=== PATIENT | male | born 1985 | race Caucasian/White ===

== ENCOUNTER 2024-01-14 01:11 | Emergency (ER) | payer OTHER ==
[~2024-01-14] VITALS: Ht 170.2 cm; Wt 85.0 kg
[2024-01-14 02:36] LABS: AMPHETAMINES, URINE POSITIVE (NEGATIVE); BARBITURATES, URINE NEGATIVE (NEGATIVE); BENZODIAZEPINE, URINE NEGATIVE (NEGATIVE); BUPRENORPHINE, URINE NEGATIVE (NEGATIVE); CANNABINOID, URINE POSITIVE (NEGATIVE); COCAINE, URINE NEGATIVE (NEGATIVE); ECSTASY, URINE POSITIVE (NEGATIVE); FENTANYL, URINE NEGATIVE (NEGATIVE); METHADONE, URINE NEGATIVE (NEGATIVE); OPIATES, URINE NEGATIVE (NEGATIVE); OXYCODONE, URINE NEGATIVE (NEGATIVE); PHENCYCLIDINE, URINE NEGATIVE (NEGATIVE)
[2024-01-14 03:45] VITALS: BP 148/85
== END 2024-01-14 03:45 | disposition home or self-care (01) ==
LOC: ED 01:11
PROVIDERS: Family Medicine
DX: F15.10 Other stimulant abuse, uncomplicated (principal); F12.10 Cannabis abuse, uncomplicated; Z88.0 Allergy status to penicillin
CPT/HCPCS: 80307; 99283

== ENCOUNTER 2024-02-04 23:47 | Emergency (ER) | payer OTHER ==
[~2024-02-04] VITALS: Ht 170.2 cm; Wt 81.9 kg
--- OUTSIDE RECORDS SUMMARY | 2024-02-04 23:47 | XMS ---
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 Jeramie has no Care Guidelines for this patient. [facility] (12 MO.) [facility] NOTE: Visits indicate total known visits. ED/C VISIT TRACKING (12 MO.) [facility] COMPLAINT: - DRUG EXPOSURE 01/14/2024 01:13 [facility] [place] TYPE: Emergency COMPLAINT: - CHECMICAL EXPOSURE DIAGNOSES: - Allergy status to penicillin - Cannabis abuse, uncomplicated - Other psychoactive substance abuse, uncomplicated - Other stimulant abuse, uncomplicated - Other stimulant abuse, uncomplicated INPATIENT VISIT TRACKING (12 MO.) No inpatient visits to display in this time frame [email or web address]
[2024-02-05] MEDS ORDERED: NALOXONE 4 MG NASAL SPRAY #2 HOME.PACK NAS ONE (01:15)
[2024-02-05 01:25] VITALS: BP 133/96
== END 2024-02-05 01:27 | disposition home or self-care (01) ==
LOC: ED 23:47
DX: Z77.29 Contact with and (suspected) exposure to other hazardous substances (principal)
CPT/HCPCS: 99283; J3490

== ENCOUNTER 2024-05-07 22:37 | Emergency (ER) | payer OTHER ==
[~2024-05-07] VITALS: Ht 170.2 cm; Wt 95.6 kg
[2024-05-07 23:00] LABS: HEMATOCRIT 42.4 % (35.0-50.0); HEMOGLOBIN 14.1 g/dL (12.0-18.0); MCH 30.4 (27-36); MCHC 33.4 g/dl (30-36); PLATELET COUNT 293 K/uL (140-440); RBC 4.66 M/ul (4.3-5.7); RDW 14.7 (10.5-15.0)
[2024-05-07] MEDS ORDERED: DIPHTH,PERTUSS(ACELL),TET VAC 0.5 ML SYRINGE IM ONE (23:00)
[2024-05-07 23:11] LABS: ALBUMIN 3.9 g/dL (3.4-5.0); ALBUMIN/GLOBULIN RATIO 1.03 (1.1-2.4); ANION GAP 20.1 (7-21); BILIRUBIN, TOTAL 0.4 ng/dL (0.2-1.0); BUN/CREATININE RATIO 12.09 (6.0-28.6); CALCIUM 8.2 mg/dL (8.5-10.1); CREATININE, SERUM 1.24 mg/dL (0.70-1.30); POTASSIUM 3.1 mmol/L (3.5-5.1); PROTEIN, TOTAL 7.7 g/dL (6.4-8.2)
[2024-05-07 23:17] LABS: BASOPHILS, MANUAL DIFF 1; LYMPHOCYTES, MANUAL DIFF 7; MONOCYTES, MANUAL DIFF 10; NEUTROPHILS, MANUAL DIFF 82
[2024-05-07 23:41] LABS: ABO O; ANTIBODY SCREEN NEGATIVE; RH POSITIVE
[2024-05-08] MEDS ORDERED: LACTATED RINGER'S 1,000 ML IV ONE (00:45)
[2024-05-08] MEDS ORDERED: CEFAZOLIN SODIUM 2 GM/20 ML SYR IV ONE (01:30)
[2024-05-08 01:40] VITALS: BP 124/82
== END 2024-05-08 01:40 | disposition short-term general hospital (02) ==
LOC: ED 22:37
PROVIDERS: Internal Medicine
DX: S02.2XXA Fracture of nasal bones, initial encounter for closed fracture (principal); S02.40EA Zygomatic fracture, right side, initial encounter for closed fracture; S02.31XA Fracture of orbital floor, right side, initial encounter for closed fracture; S02.841A Fracture of lateral orbital wall, right side, initial encounter for closed fracture; Y04.0XXA Assault by unarmed brawl or fight, initial encounter; Z23 Encounter for immunization; Z88.0 Allergy status to penicillin
CPT/HCPCS: 36415; 67715; 70450; 70486; 72125; 80053; 80307; 85025; 86850; 86900; 86901; 90471; 90715; 99285-25; G0480; J0690; J7121

== ENCOUNTER 2024-12-23 00:08 | Emergency (ER) | payer SELFPAY ==
[~2024-12-23] VITALS: Ht 170.2 cm; Wt 97.7 kg
[2024-12-23 01:30] VITALS: BP 138/89
== END 2024-12-23 01:38 | disposition home or self-care (01) ==
LOC: ED 00:08
DX: S61.211A Laceration without foreign body of left index finger without damage to nail, initial encounter (principal); W26.0XXA Contact with knife, initial encounter; Z88.0 Allergy status to penicillin
CPT/HCPCS: 12002; 99282

== ENCOUNTER 2025-07-04 19:43 | Emergency (ER) | payer OTHER ==
[~2025-07-04] VITALS: Ht 170.2 cm; Wt 95.5 kg
[2025-07-04] MEDS ORDERED: DIPHTH,PERTUSS(ACELL),TET VAC 0.5 ML SYRINGE IM ONE (21:30)
[2025-07-04 21:50] VITALS: BP 137/97
== END 2025-07-04 21:50 | disposition home or self-care (01) ==
LOC: ED 19:43
DX: S00.03XA Contusion of scalp, initial encounter (principal); W18.30XA Fall on same level, unspecified, initial encounter; Z88.0 Allergy status to penicillin
CPT/HCPCS: 70450; 72125; 90471; 90715; 99284-25